=== PATIENT | female | born 2000 | race Caucasian/White ===

== ENCOUNTER 2023-03-22 05:28 | Inpatient (IN) ==
--- NOTE | 2023-03-19 10:13 | Anesthesiology Consultation ---
Date of Service March 19, 2023 Assessment & Plan (1) Encounter for pre-operative examination: Infectious disease screening: Per assessment on 03/19/23: No known infectious disease contacts or current infectious disease symptoms. No noted recent Covid positive test result. 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 History Surgery Operation Date: 03/22/23 07:30 Proposed Procedures p Section in LD (Delivery of Baby through Abdominal Incision) - Brenda Walsh MD Height/Weight Height: 5 ft 2 in Weight: 75.296 kg Allergies Allergy/AdvReac Type Severity Reaction Status Date / Time No Known Allergies Allergy Verified 03/19/23 09:34 Medications Home Medications Medication Instructions Recorded Confirmed Last Taken prenat.vits,kiana,uko-knca-feygc 1 tab PO QPM 08/16/22 03/19/23 Unknown Past Medical History Medical History (Updated 03/19/23 @ 10:12 by Thuy Andrade) No known health problems Past Family History Family History Grandmother Breast cancer Other Depression Diabetes No family history of adverse response to anesthesia Past Surgical History Surgical History History of oral surgery Social History Smoking Status: Never smoker Do You Dip or Chew Tobacco: No Hx Alcohol Use: No Hx Substance Use: No substance use type: does not use
--- NOTE | 2023-03-21 11:55 | History & Physical Report ---
Date of Service March 21, 2023 Assessment & Plan (1) Breech presentation: Plan: 22 yo G1 at 39 wga presents for preop to planned primary CS For breech Discussed indications, risks, benefits, alternatives with risks including infection, bleeding, injury to adjacent structures (bowel, bladder, ureters, blood vessels, nerves, baby), possible need for blood transfusion and/or life saving hysterectomy, VTE. Consent reviewed in detail w/ pt and signed after all questions answered to her satisfaction. History of Present Illness Chief Complaint: Preop Primary Care Provider: Kevin Young MD 22 yo G1 at 39 wga presents for preop for primary CS for breech. 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 Hx: G1 08/2022 neg cyto denies hx stis Allergies Allergy/AdvReac Type Severity Reaction Status Date / Time No Known Allergies Allergy Verified 03/21/23 09:27 Home Medications Medication Instructions Recorded Confirmed Type prenat.vits,kiana,rmi-ljon-snisn 1 tab PO QPM 08/16/22 03/21/23 History Patient History Medical History (Updated 03/19/23 @ 10:12 by Thuy Andrade) No known health problems Surgical History History of oral surgery Family History Grandmother Breast cancer Other Depression Diabetes No family history of adverse response to anesthesia Social History Smoking Status: Never smoker Second Hand Exposure: No; Do You Dip or Chew Tobacco: No; Hx Alcohol Use: No Hx Substance Use: No Preferred Language: Romansh Communication Ability: Effective Deputy Court Clerk Required: No Beliefs That Will Affect Care: None marital status: marital status details: Jace (33) [phone] Current Living Situation: Spouse Current Living Situation Comment: lives with spouse, no pets current occupational status: employed and unemployed Feels Safe at Home: Yes Assistive Devices: Contacts and Glasses Physical Exam Constitutional: WD/WN, vitals as above Respiratory: normal respiratory effort, lungs clear to auscultation Cardiovascular: RRR, no murmur, no edema Genitourinary: OB Exam Abdomen: + heart tones (130s) and + breech (by US) Results & Data Laboratory Results OB Labs: Blood Type A Negative 08/28/22 Antibody Screen NEGATIVE 01/07/23 Hemoglobin 12.4 g/dl (12.0-16.0) 01/07/23 Hematocrit 35.3 % (37.0-47.0) L 01/07/23 Mean Corpuscular Volume 85.9 fL (80.0-100.0) 08/28/22 Platelet Count 299 K/uL (130-400) 08/28/22 Rubella IgG Antibody Immune (Immune) 08/28/22 Rapid Plasma Reagin Nonreactive (Nonreactive) 08/28/22 Hepatitis B Surface Antigen. NON-REACTIVE (NON-REACTIVE) 08/28/22 Hepatitis C Antibody (EIA) NON-REACTIVE (NON-REACTIVE) 08/28/22 HIV (1&2) Ag and Ab Confirmation NON-REACTIVE (NON-REACTIVE) 08/28/22 Glucose 1 Hour 50 gm Load 82 mg/dl (70-130) 01/07/23 OB Optional Labs: Chlamydia trachomatis RNA Not Detected (NotDetected) 08/28/22 Neisseria gonorrhoeae RNA Not Detected (NotDetected) 08/28/22 Labs Reviewed: declined genetics /horizon/afp gbs neg--akh Diagnostic Findings Post plac Coding Level of Care Code None Diagnoses Breech presentation, single or unspecified fetus O32.1XX0 Fetus number: single or unspecified fetus (1) Breech presentation Fetus number: single or unspecified fetus Qualified Code(s): O32.1XX0 - Maternal care for breech presentation, not applicable or unspecified
[2023-03-22] MEDS ORDERED: LACTATED RINGER'S 1,000 ML IV SCH (05:30)
[2023-03-22 05:55] LABS: Basophils # (auto) 0.03 K/uL (0.00-0.20); Basophils % (auto) 0.2 %; Eosinophils % (auto) 0.8 %; Hematocrit (blood only) 36.9 % (37.0-47.0); Hemoglobin 12.7 g/dl (12.0-16.0); Immature Granulocytes # (auto) 0.07 K/uL (0.01-0.20); Immature Granulocytes % (auto) 0.5 %; Lymphocytes % (auto) 22.2 %; Mean Corpuscular Hemoglobin 30.2 pg (25.0-34.0); Mean Corpuscular Hgb Conc 34.4 g/dL (32.0-36.0); Mean Corpuscular Volume 87.9 fL (80.0-100.0); Mean Platelet Volume 11.1 fL (9.4-12.4); Monocytes # (auto) 1.03 K/uL (0.11-0.59); Monocytes % (auto) 7.9 %; Neutrophils # (auto) 8.93 K/uL (1.40-6.50); Neutrophils % (auto) 68.4 %; Platelet Count 242 K/uL (130-400); RDW Coefficient of Variation 13.2 % (11.5-14.5); RDW Standard Deviation 42.3 fL (36.4-46.3); White Blood Count 13.06 K/ul (4.8-10.8)
[2023-03-22] MEDS ORDERED: ceFAZolin 2000MG 2,000 MG/15 ML SYR IV SCH (06:00)
[2023-03-22] MEDS ORDERED: CITRIC ACID/SODIUM CITRATE 15 ML UDC PO SCH (06:00)
[2023-03-22] MEDS ORDERED: MoRPHine SULFATE PF 1 MG/ML 10 ML AMP/VIAL ONE (06:54)
[2023-03-22] MEDS ORDERED: OXYTOCIN 10 UNITS/ML VIAL ONE (06:54)
[2023-03-22] MEDS ORDERED: fentaNYL citrate PF 100 MCG/2 ML VIAL ONE (06:54)
[2023-03-22] MEDS ORDERED: PHENYLEPHRINE HCL 10 MG/ML VIAL ONE (06:54)
[2023-03-22] MEDS ORDERED: ePHEDrine sulfate 50 MG/ML AMP IV PRN (07:10)
[2023-03-22] MEDS ORDERED: MoRPHine SULFATE PF 1 MG/ML 10 ML AMP/VIAL INT SPINAL ONE (07:10)
[2023-03-22] MEDS ORDERED: ONDANSETRON INJ 2 MG/ML 2 ML VIAL IV PRN (07:10)
[2023-03-22] MEDS ORDERED: MoRPHine SULFATE 2 MG/ML CARP IV PRN (07:10)
[2023-03-22] MEDS ORDERED: NALOXONE HCL 0.4 MG/1 ML VIAL/CARP IV PRN (07:10)
[2023-03-22] MEDS ORDERED: NALOXONE HCL 0.08 MG in SYRINGE 1.8 ML IV PRN (07:10)
[2023-03-22] MEDS ORDERED: LACTATED RINGER'S 500 ML IV PRN (07:10)
[2023-03-22] MEDS ORDERED: NALOXONE HCL 1 MG in SODIUM CHLORIDE 0.9% 1,000 ML IV PRN (07:10)
[2023-03-22] MEDS ORDERED: NALBUPHINE HCL 5 MG in SYRINGE 0 ML IV PRN (07:10)
[2023-03-22] MEDS ORDERED: diphenhydrAMINE 50 MG/ML VIAL IV PRN (07:10)
[2023-03-22] MEDS ORDERED: SODIUM CHLORIDE 0.9% 1,000 ML IV SCH (07:15)
[2023-03-22] MEDS ORDERED: NO NARCOTICS OR SEDATIVES SCH ×3 (07:15→07:30)
[2023-03-22] MEDS ORDERED: DC INTRASPINAL MORPHINE SCH (07:15)
--- NOTE | 2023-03-22 07:17 | History & Physical Bridge Note ---
Date of Service March 22, 2023 History & Physical Bridge Note I have examined the patient, reviewed the History & Physical and in the interval since the performance of the History & Physical I have noted the following changes of clinical significance: no changes noted. BSUS confirms still breech, continue w/ planned procedure
[2023-03-22 07:24] LABS: Alanine Aminotransferase 10 U/L (7-52); Albumin Globulin Ratio 1.2 (0.9-2); Alkaline Phosphatase 126 U/L (34-104); Anion Gap 10 (3-11); Aspartate Aminotransferase 15 U/L (13-39); BUN Creatinine Ratio 12.3 (10-20); Bilirubin,Total 0.3 mg/dl (0.2-1.0); Blood Urea Nitrogen 7 mg/dl (6-23); Calcium 8.9 mg/dl (8.6-10.3); Carbon Dioxide 20 mmol/L (21-32); Chloride 108 mmol/L (98-107); Creatinine Clr Calc Pharmacy 147.8 ml/min; Est GFR (African American) > 150.0 ml/min; Est GFR (Non-African American) 131.6 ml/min; Globulin 2.5 gm/dl (2.5-4.0); Glucose 78 mg/dl (70-99(Fasting)); Potassium 3.8 mmol/L (3.5-5.1); Sodium 138 mmol/L (136-145); Total Protein 5.5 gm/dl (6.0-8.3)
[2023-03-22] MEDS ORDERED: ePHEDrine sulfate 50 MG/5 ML SYR ONE (08:58)
--- NOTE | 2023-03-22 09:01 | Operative Report ---
PG Post Operative Report Pre & Post Diagnosis Operation Date: 03/22/23 07:30 Pre-Op Diagnosis: Intrauterine at 39 weeks. Breech presentation. Post-Op Diagnosis: Intrauterine at 39 weeks. Breech presentation. Delivery of live male child at 0815. I identified the patient and participated in the time-out.: Yes Procedure Operation Date: 03/22/23 07:30 Actual Procedures p Primary Low Transverse Section (Delivery of Baby through Abdominal Incision), delivery of live male child at 0815(Bilateral) - Brenda Walsh MD Surgeon Brenda Walsh MD Aircraft Maintenance Technician MD Josefina Estimated Blood Loss 500 Findings Consistent with Post-Op Diagnosis Normal appearing uterus, bilateral fallopian tubes and ovaries. Viable male with APGARs of 8 and 9, weight pending Fluids 1300cc crystalloid, UOP 100cc clear urine by cabrera catheter Specimens Placenta Drains Cabrera draining clear urine Anesthesia Type Spinal Complications none Disposition Accompanied Patient To Recovery: Yes Disposition: L&D Indications 22 yo G1 at 39 1/7 wga presents for primary CS due to breech presentation Description of Procedure The patient was taken to the operating room after consents were ensured. The patient was properly identified. Spinal anesthesia was obtained without difficulty. The patient was placed in a dorsal supine position with left lateral tilt, then prepped and draped in normal sterile fashion. Surgical time out was performed. Antibiotics were given for prophylaxis. Anesthesia was tested to ensure adequate surgical levels. Pfannenstiel skin incision was performed and carried down to the underlying fascia with a knife. The fascia was then nicked in the midline and extended laterally with pickups and Zarate scissors. Superior portion of the fascia was grasped with Kochers x2 and elevated off the underlying rectus muscles using blunt dissection. Inferior portion of the fascia was then grasped with Ahsan clamps x2 and also elevated off the underlying muscles with blunt dissection. Midline was identified. The peritoneum was then entered and extended to provide adequate room for delivery of baby. A hand was inserted into the abdomen, uterus was noted to be clear of adhesions. Bladder blade was inserted, bladder flap was created in the usual fashion. A low transverse uterine incision was made in the uterus and extended bluntly in a superior to inferior fashion. Amniotomy was made with clear fluid at the time of rupture. feet were grasped and delivered through the hysterotomy atraumatically. Fundal pressure was applied and breech and torso were delivered atraumatically through the hysterotomy. Moist blue towel was wrapped around torso and arms were swept across the chest. head delivered spontaneously. Nose and mouth were bulb suctioned on the surgical field. The cord was double clamped and cut, baby was handed off to awaiting pediatrics staff. Cord blood was obtained. Placenta was then expressed from the uterus. The uterus was exteriorized. Several passes were made inside the uterus to remove the remaining membranes. Attention was then turned to the hysterotomy, which was then closed with a running locked suture of 0 Vicryl on a CTX needle. An imbricating layer was then performed using 0-Monocryl. There was noted to be good hemostasis. The posterior cul-de-sac was then inspected and cleaned of clot and debris. The hysterotomy was again inspected and noted to be hemostatic. The uterus was returned to the abdomen. The right and left pericolic gutters were cleaned of all clot and debris. The hysterotomy was again noted to be hemostatic. Space of Retzius was noted to be hemostatic. The fascia was then closed with a running suture of 0 Vicryl on a CT1 needle. Subcutaneous tissue was copiously irrigated and noted to be hemostatic. Subcutaneous tissue was re-approximated using 2-0 plain gut. The skin was then closed with a running suture of 3-0 Monocryl in a subcuticular fashion. At termination of the procedure, fundal pressure was applied and a moderate amount of lochia was expressed. Pressure dressing was applied to the patient. She tolerated the procedure well. All sponge, needle, instrument counts were correct x 2. I attest to the content of the Intraoperative Record and any orders documented therein. Any exceptions are noted below. OB Procedure Charges 45091
[2023-03-22] MEDS ORDERED: DIPHTHERIA/TETANUS/PERTUSSIS Vaccine (Tdap, Age 7+yrs) 0.5mL SYR/VL IM ONE (09:03)
[2023-03-22] MEDS ORDERED: SENNA 8.6 MG TAB PO PRN (09:03)
[2023-03-22] MEDS ORDERED: OXYTOCIN 20 UNITS/LR 1,002 ML IV SCH (09:03)
[2023-03-22] MEDS ORDERED: BENZOCAINE 20% SPRY 85 APPLN/85 GM CAN EXT PRN (09:03)
[2023-03-22] MEDS ORDERED: HYDROCORTISONE ACETATE 25 MG SUPP PR PRN (09:03)
--- NOTE | 2023-03-22 09:19 | Anesthesiology Progress Note ---
Date of Service March 22, 2023 Anesthesia Post Procedure Vital Signs Vital Signs: Temp Pulse Resp BP Pulse Ox 03/22/23 09:14 96 03/22/23 09:14 84 03/22/23 09:14 97 H 146/91 H 03/22/23 09:09 88 96 03/22/23 09:05 16 03/22/23 09:04 88 147/90 H 94 03/22/23 08:59 80 96 03/22/23 08:57 83 93 03/22/23 08:55 36.6 C 16 03/22/23 08:54 80 136/85 95 03/22/23 06:24 76 167/108 H 03/22/23 06:03 85 153/113 H 03/22/23 05:47 80 168/106 H 03/22/23 05:40 37.3 C 18 Transfer of Care Handoff Completed per policy Notes Mental Status: alert / awake / arousable and participated in evaluation Patient Amnestic to Procedure: Yes Nausea / Vomiting: adequately controlled Pain: adequately controlled Airway Patency, RR, SpO2: stable & adequate BP & HR: stable & adequate Hydration State: stable & adequate Neuraxial Anesthesia: was administered and sensory block is resolving Anesthetic Complications: no major complications apparent and Pt Satisfied with anesthetic care
[2023-03-22] MEDS: KETOROLAC 30 MG/ML VIAL IV PRN ×2 (09:40→18:22)
[2023-03-22 10:05] LABS: Total Protein Urine Random 78.4 mg/dl (0-11.9)
[2023-03-22 10:11] LABS: Creatinine Urine Random 137.2 mg/dl; Protein Creatinine Ratio Urine 0.6 (0-0.2)
[2023-03-22] MEDS: LACTATED RINGER'S 1,000 ML IV SCH ×2 (11:17→23:16)
[2023-03-22] MEDS ORDERED: MAG SULFATE 4GM BOLUS FROM BAG IV ONE (11:19)
--- NOTE | 2023-03-22 11:20 | Obstetrical Progress Note ---
Date of Service March 22, 2023 Assessment & Plan Admission and Anticipated Discharge Date Admission Date: March 22, 2023 Results & Data Vital Signs (Past 12 Hours) Vital Signs Temp Pulse Resp BP Pulse Ox 03/22/23 11:14 88 96 03/22/23 11:09 123 H 95 03/22/23 11:04 91 H 98 03/22/23 10:59 90 99 03/22/23 10:54 98 03/22/23 10:54 88 03/22/23 10:54 88 159/109 H 03/22/23 10:49 89 98 03/22/23 10:44 100 H 99 03/22/23 10:39 115 H 97 03/22/23 10:34 81 100 03/22/23 10:29 80 98 03/22/23 10:25 16 03/22/23 10:24 76 99 03/22/23 10:19 76 94 03/22/23 10:14 81 98 03/22/23 10:12 85 170/104 H 03/22/23 10:09 79 97 03/22/23 10:04 104 H 97 03/22/23 09:59 77 96 03/22/23 09:57 78 87 L 03/22/23 09:55 16 03/22/23 09:54 100 03/22/23 09:54 88 03/22/23 09:54 83 161/109 H 03/22/23 09:49 81 98 03/22/23 09:45 16 03/22/23 09:44 87 165/112 H 98 03/22/23 09:39 82 97 03/22/23 09:35 16 03/22/23 09:34 80 166/100 H 96 03/22/23 09:29 87 97 03/22/23 09:25 16 03/22/23 09:24 96 03/22/23 09:24 92 H 03/22/23 09:24 88 144/94 H 03/22/23 09:19 96 H 97 03/22/23 09:15 16 03/22/23 09:14 96 03/22/23 09:14 84 03/22/23 09:14 97 H 146/91 H 03/22/23 09:09 88 96 03/22/23 09:05 16 03/22/23 09:04 88 147/90 H 94 03/22/23 08:59 80 96 03/22/23 08:57 83 93 03/22/23 08:55 97.9 F 16 03/22/23 08:54 80 136/85 95 03/22/23 06:24 76 167/108 H 03/22/23 06:03 85 153/113 H 03/22/23 05:47 80 168/106 H 03/22/23 05:40 99.1 F 18 PG Care Time/CCT Total # of Minutes Spent Total Time Spent with Patient: Total time spent is greater than 50% in coordination of care (as documented) at patient's floor/unit and/or counseling patient: Coding
--- NOTE | 2023-03-22 11:29 | Communication Note ---
Date of Service: March 22, 2023 BPs initially elevated this AM, normal cbc and cmp were noted at that time. Bps improved but remained mild range during CS despite appropriate spinal response. UPC was drawn and 0.6. In recover, bps slowly started increasing again and became severe range. Due to persistent severes, discussed diagnosis w/ pre- eclampsia w/ severe features. She is asymptomatic at this time. Discussed recommendation for magnesium, potential need for anti-hypertensives. Pt aware and amenable to plan. Josue already in place, will monitor I/Os
[2023-03-22] MEDS: MAGNESIUM SULFATE / WTR 40 GM/1,000 ML BAG IV SCH (11:48)
[2023-03-22] MEDS ORDERED: LABETALOL HCL 100 MG TAB ONE (20:06)
[2023-03-22] MEDS: SIMETHICONE 80 MG CHEW PO SCH (21:01)
[2023-03-22] MEDS: DOCUSATE SODIUM 100 MG CAP PO SCH (21:01)
[2023-03-22] MEDS: LABETALOL HCL 200 MG TAB PO SCH (21:02)
[2023-03-23] MEDS: KETOROLAC 30 MG/ML VIAL IV PRN (00:22)
[2023-03-23] MEDS ORDERED: diphenhydrAMINE 50 MG/ML VIAL IV PRN (01:10)
[2023-03-23] MEDS ORDERED: KETOROLAC 30 MG/ML VIAL IV PRN (01:10)
[2023-03-23] MEDS ORDERED: ONDANSETRON INJ 2 MG/ML 2 ML VIAL IV PRN (01:10)
[2023-03-23] MEDS ORDERED: diphenhydrAMINE Capsule 25 MG CAP PO PRN (01:10)
[2023-03-23] MEDS ORDERED: PROMETHAZINE HCL 25 MG in SODIUM CHLORIDE 0.9% 50 ML IV PRN (01:10)
[2023-03-23] MEDS: IBUPROFEN 600 MG TAB PO PRN ×3 (04:31→18:14)
[2023-03-23] MEDS: oxyCODONE/ACETAMINOPHEN 5mg/325mg TAB PO PRN ×3 (04:32→18:17)
[2023-03-23] MEDS: MAGNESIUM SULFATE / WTR 40 GM/1,000 ML BAG IV SCH (06:10)
[2023-03-23] MEDS: LABETALOL HCL 200 MG TAB PO SCH ×2 (08:51→20:32)
[2023-03-23] MEDS: SIMETHICONE 80 MG CHEW PO SCH ×5 (08:52→20:32)
[2023-03-23] MEDS: FERROUS SULFATE 325 MG TAB PO SCH (08:52)
[2023-03-23] MEDS: DOCUSATE SODIUM 100 MG CAP PO SCH ×2 (08:52→20:32)
[2023-03-23] MEDS: PRENATAL VITAMIN 1 TAB PO SCH (08:52)
--- NOTE | 2023-03-23 09:18 | Obstetrical Progress Note ---
Date of Service March 23, 2023 Assessment & Plan (1) Preeclampsia: Day 1 status post primary for breech presentation. course complicated by severe preeclampsia currently on magnesium. Patient doing well and denies preeclampsia symptoms at present. Blood pressures have been labile and was started on labetalol 200 mg twice daily last night. Blood pressures have been well-controlled on current medication dosing. Will continue to monitor and will plan to discontinue mag at 24 hours postdelivery. Questions answered to the patient's satisfaction Trimester: unspecified trimester Qualified Code(s): O14.90 - Unspecified pre-eclampsia, unspecified trimester (2) Severe pre-eclampsia affecting first : (3) Encounter for care and examination after delivery: Subjective Ambulation: ambulating normally Voiding: no voiding problems Passing Gas:: Yes Diet Tolerance:: regular diet Lochia:: Moderate Feeding Type:: breast feeding Patient currently on mg and is doing well. Denies any preeclampsia symptoms Physical Exam Constitutional WD/WN, vitals as above Respiratory normal respiratory effort; no respiratory distress and no labored breathing Gastrointestinal (Abdomen) Inspection/Auscultation: abdomen normal to inspection; abdomen not distended Percussion/Palpation: abdomen soft; abdomen nontender, no guarding and abdomen not rigid Genitourinary OB Exam Abdomen: + fundal height Fundus: + firm and + relation to umbilicus (Below); not tender or not boggy Results & Data Vital Signs (Past 12 Hours) Vital Signs Temp Pulse Resp BP Pulse Ox 03/23/23 09:09 75 95 03/23/23 09:06 88 138/90 03/23/23 09:04 82 96 03/23/23 08:59 94 H 95 03/23/23 08:54 84 95 03/23/23 08:50 85 135/84 03/23/23 08:49 87 94 03/23/23 08:44 75 94 03/23/23 08:39 84 94 03/23/23 08:34 82 93 03/23/23 08:29 78 94 03/23/23 08:24 86 95 03/23/23 08:19 79 94 03/23/23 08:14 77 94 03/23/23 08:09 77 95 03/23/23 08:06 78 128/88 03/23/23 08:04 78 93 03/23/23 07:59 81 94 03/23/23 07:54 80 94 03/23/23 07:49 83 94 03/23/23 07:44 85 94 03/23/23 07:39 81 94 03/23/23 07:34 86 94 03/23/23 07:29 79 94 03/23/23 07:24 84 93 03/23/23 07:19 82 93 03/23/23 07:14 86 94 03/23/23 07:09 85 95 03/23/23 07:06 85 132/85 03/23/23 07:04 87 94 03/23/23 06:59 91 H 94 03/23/23 06:54 92 H 94 03/23/23 06:49 92 H 94 03/23/23 06:44 84 95 03/23/23 06:39 83 94 03/23/23 06:34 83 94 03/23/23 06:29 88 94 03/23/23 06:24 78 95 03/23/23 06:19 87 94 03/23/23 06:14 16 03/23/23 06:14 81 94 03/23/23 06:09 81 94 03/23/23 06:06 82 133/78 03/23/23 06:04 78 95 03/23/23 05:59 90 93 03/23/23 05:54 76 94 03/23/23 05:49 83 94 03/23/23 05:44 82 95 03/23/23 05:39 79 94 03/23/23 05:34 76 94 03/23/23 05:29 83 94 03/23/23 05:24 79 95 03/23/23 05:19 83 94 03/23/23 05:15 16 03/23/23 05:14 80 96 03/23/23 05:09 82 93 03/23/23 05:06 80 137/86 03/23/23 05:04 80 93 03/23/23 04:59 80 95 03/23/23 04:54 81 95 03/23/23 04:49 78 94 03/23/23 04:44 80 92 03/23/23 04:39 84 94 03/23/23 04:34 91 H 93 03/23/23 04:30 16 03/23/23 04:30 87 91 03/23/23 04:29 97 H 94 03/23/23 04:24 71 94 03/23/23 04:19 71 93 03/23/23 04:14 73 94 03/23/23 04:09 73 94 03/23/23 04:06 70 115/71 03/23/23 04:04 78 93 03/23/23 03:59 74 95 03/23/23 03:54 74 94 03/23/23 03:49 72 94 03/23/23 03:44 80 94 03/23/23 03:41 92 H 88 L 03/23/23 03:39 80 94 03/23/23 03:35 36.8 C 16 03/23/23 03:35 16 03/23/23 03:34 76 93 03/23/23 03:29 91 H 95 03/23/23 03:24 78 93 03/23/23 03:19 71 94 03/23/23 03:14 77 94 03/23/23 03:09 79 94 03/23/23 03:06 79 119/77 03/23/23 03:04 77 93 03/23/23 02:59 73 94 03/23/23 02:54 79 94 03/23/23 02:49 67 93 03/23/23 02:44 68 93 03/23/23 02:39 70 93 03/23/23 02:34 68 93 03/23/23 02:29 71 93 03/23/23 02:24 76 94 03/23/23 02:19 72 94 03/23/23 02:15 16 03/23/23 02:14 71 94 03/23/23 02:09 78 95 03/23/23 02:06 74 142/87 H 03/23/23 02:04 79 94 03/23/23 01:59 87 93 03/23/23 01:54 75 93 03/23/23 01:49 72 94 03/23/23 01:44 71 93 03/23/23 01:39 88 92 03/23/23 01:34 80 93 03/23/23 01:30 18 03/23/23 01:30 74 91 03/23/23 01:29 66 92 03/23/23 01:25 68 91 03/23/23 01:24 68 92 03/23/23 01:19 92 03/23/23 01:19 69 03/23/23 01:19 69 91 03/23/23 01:14 68 92 03/23/23 01:09 70 92 03/23/23 01:06 70 126/81 03/23/23 01:04 75 93 03/23/23 00:59 92 03/23/23 00:59 69 03/23/23 00:59 70 91 03/23/23 00:54 82 93 03/23/23 00:49 76 94 03/23/23 00:44 72 93 03/23/23 00:39 75 94 03/23/23 00:34 77 94 03/23/23 00:30 16 03/23/23 00:29 82 93 03/23/23 00:24 79 93 03/23/23 00:19 77 94 03/23/23 00:14 74 93 03/23/23 00:09 72 93 03/23/23 00:06 71 123/81 03/23/23 00:04 70 92 03/22/23 23:59 73 92 03/22/23 23:54 83 93 03/22/23 23:49 85 93 03/22/23 23:44 76 94 03/22/23 23:39 79 93 03/22/23 23:34 84 96 03/22/23 23:30 18 03/22/23 23:29 75 95 03/22/23 23:24 92 H 94 03/22/23 23:19 79 95 03/22/23 23:15 36.5 C 18 03/22/23 23:14 79 94 03/22/23 23:09 75 94 03/22/23 23:06 76 138/87 03/22/23 23:04 77 93 03/22/23 22:59 78 94 03/22/23 22:54 76 93 03/22/23 22:49 78 94 03/22/23 22:44 80 94 03/22/23 22:39 73 95 03/22/23 22:34 75 94 03/22/23 22:30 16 03/22/23 22:29 76 94 03/22/23 22:24 82 94 03/22/23 22:19 79 94 03/22/23 22:14 72 93 03/22/23 22:09 71 93 03/22/23 22:06 72 134/77 03/22/23 22:04 78 93 03/22/23 21:59 73 92 03/22/23 21:55 71 91 03/22/23 21:54 75 92 03/22/23 21:49 72 93 03/22/23 21:44 76 94 03/22/23 21:39 76 92 03/22/23 21:34 81 94 03/22/23 21:30 18 03/22/23 21:29 92 H 94 03/22/23 21:24 82 95 03/22/23 21:19 78 91
[2023-03-23 12:40] LABS: Basophils # (auto) 0.02 K/uL (0.00-0.20); Basophils % (auto) 0.1 %; Eosinophils # (auto) 0.03 K/uL (0.00-0.50); Eosinophils % (auto) 0.2 %; Hematocrit (blood only) 25.9 % (37.0-47.0); Hemoglobin 9.1 g/dl (12.0-16.0); Immature Granulocytes # (auto) 0.18 K/uL (0.01-0.20); Immature Granulocytes % (auto) 1.2 %; Lymphocytes # (auto) 1.75 K/uL (1.20-3.40); Lymphocytes % (auto) 11.3 %; Mean Corpuscular Hemoglobin 30.7 pg (25.0-34.0); Mean Corpuscular Hgb Conc 35.1 g/dL (32.0-36.0); Mean Corpuscular Volume 87.5 fL (80.0-100.0); Mean Platelet Volume 11.2 fL (9.4-12.4); Monocytes # (auto) 1.24 K/uL (0.11-0.59); Neutrophils # (auto) 12.24 K/uL (1.40-6.50); Neutrophils % (auto) 79.2 %; Platelet Count 206 K/uL (130-400); RDW Coefficient of Variation 13.5 % (11.5-14.5); Red Blood Count 2.96 M/uL (4.20-5.40); White Blood Count 15.46 K/ul (4.8-10.8)
[2023-03-23] MEDS ORDERED: bisacodyL 5 MG TABEC PO SCH (20:00)
[2023-03-24 06:54] LABS: Hematocrit (blood only) 24.1 % (37.0-47.0); Hemoglobin 8.5 g/dl (12.0-16.0)
--- NOTE | 2023-03-24 07:22 | Obstetrical Progress Note ---
Date of Service March 24, 2023 Assessment & Plan (1) Encounter for care and examination after delivery: (2) Severe pre-eclampsia affecting first : Plan 22 yo POD 2 from pLTCS c/b PET w/ SF, doing well -Meeting all pp milestones -BPs adequately managed on lab 200mg PO BID -Rh neg, baby Rh neg/rubella immune/ -f/u 6 weeks for appt, continue routine pp care Subjective Ambulation: ambulating normally Voiding: no voiding problems Passing Gas:: Yes Diet Tolerance:: regular diet Lochia:: Small Feeding Type:: breast feeding Pain well managed with medication Review of Systems Denies fevers, chills, n/v, NUNEZ, CP, SOB Physical Exam Constitutional WD/WN, vitals as above no acute distress Respiratory normal respiratory effort, lungs clear to auscultation Cardiovascular RRR, no murmur, no edema Gastrointestinal (Abdomen) Percussion/Palpation: abdomen soft; abdomen nontender fundus firm at umbilicus and NT, incision c/d/i Musculoskeletal BLE symmetric, nonerythematous, nontender Results & Data Vital Signs (Past 12 Hours) Vital Signs Temp Pulse Resp BP BP 03/24/23 03:18 145/90 H 03/24/23 00:18 148/99 H 03/23/23 23:50 98.1 F 85 18 161/99 H 03/23/23 20:20 97.5 F L 85 18 158/93 H
[2023-03-24] MEDS: FERROUS SULFATE 325 MG TAB PO SCH (08:30)
[2023-03-24] MEDS: DOCUSATE SODIUM 100 MG CAP PO SCH ×2 (08:30→19:46)
[2023-03-24] MEDS: PRENATAL VITAMIN 1 TAB PO SCH (08:30)
[2023-03-24] MEDS: LABETALOL HCL 200 MG TAB PO SCH ×2 (08:30→21:15)
[2023-03-24] MEDS: oxyCODONE/ACETAMINOPHEN 5mg/325mg TAB PO PRN ×4 (08:30→23:28)
[2023-03-24] MEDS: SIMETHICONE 80 MG CHEW PO SCH ×4 (08:30→19:46)
[2023-03-24] MEDS: IBUPROFEN 600 MG TAB PO PRN ×4 (08:31→23:27)
[2023-03-24] MEDS: MAGNESIUM HYDROXIDE SUSP 30 ML UDC PO PRN (08:41)
[2023-03-24] MEDS ORDERED: bisacodyL 10 MG SUPP PR PRN (08:53)
[2023-03-24] MEDS ORDERED: LABETALOL HCL 200 MG TAB PO STA (13:26)
[2023-03-24 13:56] LABS: Basophils # (auto) 0.02 K/uL (0.00-0.20); Basophils % (auto) 0.1 %; Eosinophils # (auto) 0.08 K/uL (0.00-0.50); Eosinophils % (auto) 0.6 %; Hematocrit (blood only) 25.9 % (37.0-47.0); Hemoglobin 8.7 g/dl (12.0-16.0); Immature Granulocytes # (auto) 0.14 K/uL (0.01-0.20); Lymphocytes % (auto) 14.1 %; Mean Corpuscular Hemoglobin 30.4 pg (25.0-34.0); Mean Corpuscular Hgb Conc 33.6 g/dL (32.0-36.0); Mean Corpuscular Volume 90.6 fL (80.0-100.0); Mean Platelet Volume 10.1 fL (9.4-12.4); Monocytes # (auto) 1.17 K/uL (0.11-0.59); Monocytes % (auto) 8.3 %; Neutrophils # (auto) 10.76 K/uL (1.40-6.50); Neutrophils % (auto) 75.9 %; Platelet Count 216 K/uL (130-400); RDW Coefficient of Variation 13.8 % (11.5-14.5); RDW Standard Deviation 45.6 fL (36.4-46.3); Red Blood Count 2.86 M/uL (4.20-5.40); White Blood Count 14.17 K/ul (4.8-10.8)
[2023-03-24 14:09] LABS: Alanine Aminotransferase 9 U/L (7-52); Albumin Globulin Ratio 1.2 (0.9-2); Albumin Level 2.9 gm/dl (3.4-5.0); Alkaline Phosphatase 103 U/L (34-104); Anion Gap 8 (3-11); Aspartate Aminotransferase 16 U/L (13-39); BUN Creatinine Ratio 15.5 (10-20); Bilirubin,Total 0.3 mg/dl (0.2-1.0); Blood Urea Nitrogen 9 mg/dl (6-23); Calcium 8.1 mg/dl (8.6-10.3); Carbon Dioxide 24 mmol/L (21-32); Chloride 108 mmol/L (98-107); Creatinine Clr Calc Pharmacy 145.2 ml/min; Est GFR (African American) > 150.0 ml/min; Est GFR (Non-African American) 130.8 ml/min; Globulin 2.4 gm/dl (2.5-4.0); Glucose 91 mg/dl (70-99(Fasting)); Sodium 140 mmol/L (136-145); Total Protein 5.3 gm/dl (6.0-8.3)
[2023-03-24] MEDS ORDERED: NIFEdipine EXTENDED REL 30 MG TABCR PO STA (15:35)
[2023-03-24] MEDS ORDERED: LABETALOL HCL 200 MG TAB PO SCH (18:00)
[2023-03-25] MEDS ORDERED: LABETALOL HCL 200 MG TAB PO SCH ×2 (02:00→10:00)
[2023-03-25] MEDS ORDERED: Nursing to Pharmacy Communication SCH (03:45)
[2023-03-25] MEDS: IBUPROFEN 600 MG TAB PO PRN ×3 (06:42→15:23)
[2023-03-25] MEDS: oxyCODONE/ACETAMINOPHEN 5mg/325mg TAB PO PRN ×3 (06:42→15:23)
[2023-03-25] MEDS: MAGNESIUM HYDROXIDE SUSP 30 ML UDC PO PRN (07:29)
[2023-03-25] MEDS: PRENATAL VITAMIN 1 TAB PO SCH (07:29)
[2023-03-25] MEDS: DOCUSATE SODIUM 100 MG CAP PO SCH (07:29)
[2023-03-25] MEDS: FERROUS SULFATE 325 MG TAB PO SCH (07:29)
[2023-03-25] MEDS: SIMETHICONE 80 MG CHEW PO SCH ×2 (07:29→15:09)
--- NOTE | 2023-03-25 08:04 | Obstetrical Progress Note ---
Date of Service March 25, 2023 Assessment & Plan (1) Encounter for care and examination after delivery: (2) Severe pre-eclampsia affecting first : Plan 22 yo POD 2 from pLTCS c/b PET w/ SF, doing well -Meeting all pp milestones -BPs spiked yesterday, now currently on labetalol 600q8. Did receive one dose of nifedipine 30xl but didn't seem to help much. BP is normal this AM. WIll watch throughout the day, if ok then maybe dc later this evening -Rh neg, baby Rh neg/rubella immune/ -f/u 6 weeks for appt, continue routine pp care Subjective Ambulation: ambulating normally Voiding: no voiding problems Passing Gas:: Yes Diet Tolerance:: regular diet Lochia:: Small Feeding Type:: breast feeding Pain well managed with medication Review of Systems Denies fevers, chills, n/v, NUNEZ, CP, SOB Physical Exam Constitutional WD/WN, vitals as above no acute distress Respiratory normal respiratory effort, lungs clear to auscultation Cardiovascular RRR, no murmur, no edema Gastrointestinal (Abdomen) Percussion/Palpation: abdomen soft; abdomen nontender fundus firm at umbilicus and NT, incision c/d/i Musculoskeletal BLE symmetric, nonerythematous, nontender Results & Data Vital Signs (Past 12 Hours) Vital Signs Temp Pulse Resp BP Pulse Ox O2 Del Method 03/25/23 07:17 98.2 F 91 H 18 107/67 97 Room Air 03/25/23 03:10 152/96 H 03/24/23 23:29 97.9 F 73 18 143/89 H 97 Room Air 03/24/23 21:14 157/96 H
== END 2023-03-25 16:45 | disposition home or self-care (01) | DRG 788 ==
LOC: 4S1 05:28 → EDSTATUS 07:30 → 4E2 03-23 13:37

== ENCOUNTER 2024-10-24 19:01 | Inpatient (IN) ==
[2024-10-24 20:25] LABS: Hematocrit (blood only) 35.4 % (37.0-47.0); Hemoglobin 11.9 g/dl (12.0-16.0); Mean Corpuscular Hemoglobin 28.0 pg (25.0-34.0); Mean Corpuscular Volume 83.3 fL (80.0-100.0); Platelet Count 238 K/uL (130-400); RDW Standard Deviation 43.2 fL (36.4-46.3); Red Blood Count 4.25 M/uL (4.20-5.40); White Blood Count 14.45 K/ul (4.8-10.8)
[2024-10-24 20:35] LABS: Protein Creatinine Ratio Urine 0.3 (0-0.2); Total Protein Urine Random 11.8 mg/dl (0-11.9)
[2024-10-24 20:42] LABS: Alanine Aminotransferase 10.0 U/L (7-52); Albumin Globulin Ratio 1.0 (0.9-2); Alkaline Phosphatase 195.0 U/L (34-104); Anion Gap 9.0 (3-11); Bilirubin,Total 0.4 mg/dl (0.2-1.0); Blood Urea Nitrogen 9.0 mg/dl (6-23); Calcium 9.4 mg/dl (8.6-10.3); Carbon Dioxide 21.0 mmol/L (21-32); Chloride 105.0 mmol/L (98-107); Creatinine Clr Calc Pharmacy 139.5 ml/min; Globulin 3.2 gm/dl (2.5-4.0); Glucose 83.0 mg/dl (70-99(Fasting)); Potassium 3.7 mmol/L (3.5-5.1); Sodium 135.0 mmol/L (136-145); Total Protein 6.5 gm/dl (6.0-8.3)
[2024-10-24] MEDS ORDERED: DEXAMETHASONE SOD INJ 4 MG/ML VIAL ONE (23:43)
[2024-10-24] MEDS ORDERED: ONDANSETRON INJ 2 MG/ML 2 ML VIAL ONE (23:43)
[2024-10-24] MEDS ORDERED: PHENYLEPHRINE 100MCG/ML 5ML SYR ONE (23:43)
[2024-10-24] MEDS ORDERED: PHENYLEPHRINE HCL 25 MG/250 ML NSS IV ONE (23:43)
[2024-10-24] MEDS ORDERED: MoRPHine SULFATE PF 1 MG/ML 10 ML AMP/VIAL ONE (23:48)
--- NOTE | 2024-10-24 23:48 | History & Physical Report ---
Date of Service October 24, 2024 Assessment & Plan (1) Pre-eclampsia: (2) Previous delivery affecting , antepartum: Plan 24 yo at 39 3/7 wga presented for decreased fm, now dx w/ pre-eclampsia w/o severe features Mild range bps Fetus cat 1 Discussed indications, risks, benefits, alternatives with risks including infection, bleeding, injury to adjacent structures (bowel, bladder, ureters, blood vessels, nerves, baby), possible need for blood transfusion and/or life saving hysterectomy, VTE. Consent reviewed in detail w/ pt and signed after all questions answered to her satisfaction. History of Present Illness Chief Complaint: decreased fm Primary Care Provider: Kevin Young MD 24 yo at 39 3/7 wga presented for evaluation due to decreased fm. Denies regular ctx, LOF, VB. On arrival, started having normal fm but bps noted to be mildly elevated. Denies NUNEZ, vision change, CP, SOB, RUQ/epigastric pain. Labs wnl except UP:C 0.3. 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 G2 current denies hx stis denies hx abnl pap Allergies Allergy/AdvReac Type Severity Reaction Status Date / Time No Known Allergies Allergy Verified 10/21/24 08:45 Home Medications Medication Instructions Recorded Confirmed Type prenat.vits,kiana,exa-iosu-rfrko 1 tab PO QPM 08/16/22 10/24/24 History ondansetron HCl 4 mg tablet 4 mg PO Q6H PRN nausea and 07/23/24 10/21/24 Rx vomiting #20 tabs nystatin-triamcinolone 100,000 1 applic topical BID #30 grams 07/28/24 10/21/24 Rx unit/g-0.1 % topical cream aspirin 81 mg chewable tablet 1 tab PO DAILY 10/24/24 10/24/24 History Patient History Medical History Varicella vaccination Surgical History S/P section History of oral surgery Family History Grandmother Breast cancer Father Diabetes Mother Arthritis Other Depression No family history of adverse response to anesthesia Denies family history of Ovarian cancer Colorectal cancer Social History Smoking Status: Never smoker Second Hand Exposure: No; Do You Dip or Chew Tobacco: No; Hx Alcohol Use: No Hx Substance Use: No Preferred Language: Egyptian Communication Ability: Effective Keno Manager Required: No Beliefs That Will Affect Care: None marital status: marital status details: Jace Villalobos (34) [phone] Current Living Situation: Spouse and Family Current Living Situation Comment: lives with spouse,child, no pets current occupational status: unemployed 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 Feels Safe at Home: Yes Safety Concerns: Feels Safe At This Time Assistive Devices: Glasses Physical Exam Genitourinary: OB Exam Monitor Tracing: + external FHT monitor used, + external uterine monitor used (irreg) and + category I (150/mod/+accel/-decel) Results & Data Vital Signs (Past 12 Hours) Vital Signs Temp Pulse Resp BP 10/24/24 23:23 100 H 137/95 10/24/24 23:03 98 H 139/97 10/24/24 22:44 84 135/100 10/24/24 22:23 112 H 149/95 H 10/24/24 22:03 86 133/87 10/24/24 21:26 80 124/81 10/24/24 21:10 74 132/85 10/24/24 20:55 75 137/91 10/24/24 20:40 80 142/99 H 10/24/24 20:25 81 129/89 10/24/24 20:10 85 144/100 H 10/24/24 19:55 86 133/90 10/24/24 19:43 85 125/92 10/24/24 19:40 88 136/92 10/24/24 19:24 75 134/93 10/24/24 19:17 98.1 F 16 10/24/24 19:14 76 147/97 H Laboratory Results 10/24/24 10/24/24 Range/Units 20:02 19:55 WBC 14.45 H (4.8-10.8) K/ul RBC 4.25 (4.20-5.40) M/uL Hgb 11.9 L (12.0-16.0) g/dl Hct 35.4 L (37.0-47.0) % MCV 83.3 (80.0-100.0) fL MCH 28.0 (25.0-34.0) pg MCHC 33.6 (32.0-36.0) g/dL RDW Std Deviation 43.2 (36.4-46.3) fL RDW Coeff of Jose 14.6 H (11.5-14.5) % Plt Count 238 (130-400) K/uL MPV 11.0 (9.4-12.4) fL Sodium 135 L (136-145) mmol/L Potassium 3.7 (3.5-5.1) mmol/L Chloride 105 (98-107) mmol/L Carbon Dioxide 21 (21-32) mmol/L Anion Gap 9 (3-11) BUN 9 (6-23) mg/dl Creatinine 0.59 L (0.6-1.2) mg/dl Est Cr Clr Drug Dosing 139.5 ml/min eGFR 128.98 BUN/Creatinine Ratio 15.3 (10-20) Glucose 83 (70-99(Fasting)) mg/dl Calcium 9.4 (8.6-10.3) mg/dl Total Bilirubin 0.4 (0.2-1.0) mg/dl AST 15 (13-39) U/L ALT 10 (7-52) U/L Alkaline Phosphatase 195 H (34-104) U/L Total Protein 6.5 (6.0-8.3) gm/dl Albumin 3.3 L (3.4-5.0) gm/dl Globulin 3.2 (2.5-4.0) gm/dl Albumin/Globulin Ratio 1.0 (0.9-2) Ur Random Creatinine 42.6 mg/dl U Random Total Protein 11.8 (0-11.9) mg/dl Protein/Creatinin Ratio 0.3 H (0-0.2) OB Labs: Blood Type A Negative 03/31/24 Antibody Screen NEGATIVE 08/05/24 Hgb 12.3 g/dl (12.0-16.0) 08/03/24 Hct 36.9 % (37.0-47.0) L 08/03/24 MCV 82.2 fL (80.0-100.0) 03/31/24 Plt Count 306 K/uL (130-400) 03/31/24 Rubella IgG Antibody Immune (Immune) 03/31/24 RPR Nonreactive (Nonreactive) 08/28/22 Treponema pallidum Ab Negative (Negative) 08/03/24 Hep Bs Antigen Negative (Negative) 03/31/24 Hep Bs Antigen NON-REACTIVE (NON-REACTIVE) 08/28/22 Hepatitis C Antibody Negative (Negative) 03/31/24 Hepatitis C Ab (EIA) NON-REACTIVE (NON-REACTIVE) 08/28/22 HIV 1&2 Ab/P24 Ag 4thGn Negative (Negative) 03/31/24 HIV (1&2) Ag & Ab Conf NON-REACTIVE (NON-REACTIVE) 08/28/22 Glucose 1 Hr 50 gm 105 mg/dl (70-130) 08/03/24 OB Optional Labs: Chlamydia trachomatis RNA Not Detected (NotDetected) 03/31/24 Neisseria gonorrhoeae RNA Not Detected (NotDetected) 03/31/24 Labs Reviewed: Declines genetics--mln GBS neg Diagnostic Findings post plac Coding Level of Care Code None Diagnoses Pre-eclampsia O14.90 Previous delivery affecting , antepartum O34.219
[2024-10-25] MEDS: LACTATED RINGER'S 1,000 ML IV SCH ×2 (00:19→10:11)
[2024-10-25] MEDS: CITRIC ACID/SODIUM CITRATE 15 ML UDC PO STA (00:20)
[2024-10-25] MEDS: ACETAMINOPHEN 500 MG TAB PO STA (00:20)
--- NOTE | 2024-10-25 00:32 | Anesthesiology Consultation ---
Date of Service October 25, 2024 Assessment & Plan (1) Encounter for pre-operative examination: 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: Acceptable Risk for Surgery and Patient NOT seen in Pre Admission Testing Consults Requested none History Surgery Operation Date: 10/24/24 23:35 Proposed Procedures p Section in LD - Brenda Walsh MD Height/Weight Height: 5 ft 3 in Weight: 71.668 kg Allergies Allergy/AdvReac Type Severity Reaction Status Date / Time No Known Allergies Allergy Verified 10/21/24 08:45 Medications Home Medications Medication Instructions Recorded Confirmed Last Taken prenat.vits,kiana,oba-meuc-yhsqt 1 tab PO QPM 08/16/22 10/24/24 1 Day Ago ~10/23/24 ondansetron HCl 4 mg tablet 4 mg PO Q6H PRN nausea and 07/23/24 10/21/24 Unknown vomiting #20 tabs nystatin-triamcinolone 100,000 1 applic topical BID #30 grams 07/28/24 10/21/24 Unknown unit/g-0.1 % topical cream aspirin 81 mg chewable tablet 1 tab PO DAILY 10/24/24 10/24/24 1 Day Ago ~10/23/24 Active Medications Generic Name Dose Route Start Last Admin Trade Name Freq PRN Reason Stop Dose Admin Lactated Ringer's 1,000 mls @ 999 mls/hr 10/24/24 23:45 10/25/24 00:19 Lr IV 10/25/24 00:45 999 mls/hr .Q1H1M CORTEZ Administration Past Medical History Medical History (Updated 10/25/24 @ 00:31 by Yang Sood MD) Encounter for pre-operative examination Pre-eclampsia Varicella vaccination Exercise / Class Metabolic Activity II 4-5 Yardwork/Stairs/Walk up hill Past Family History Family History Grandmother Breast cancer Father Diabetes Mother Arthritis Other Depression No family history of adverse response to anesthesia Denies family history of Ovarian cancer Colorectal cancer Past Surgical History Surgical History S/P section History of oral surgery gum sx Past Anesthesia History No Hx of Anesthesia Complications and No Family Hx of Anesthesia Complications History of PONV No Hx of PONV and No Hx of Motion Sickness Social History Smoking Status: Never smoker Do You Dip or Chew Tobacco: No Hx Alcohol Use: No Hx Substance Use: No substance use type: does not use Physical Exam Vital Signs Last Vital Signs Temp 36.7 C 10/24/24 19:17 Pulse 100 H 10/24/24 23:23 Resp 16 10/24/24 19:17 BP 137/95 10/24/24 23:23 Testing Laboratory Results 10/24/24 20:02 10/24/24 20:02
[2024-10-25] MEDS ORDERED: NALOXONE HCL 1 MG in SODIUM CHLORIDE 0.9% 1,000 ML IV PRN (01:15)
[2024-10-25] MEDS ORDERED: LACTATED RINGER'S 500 ML IV PRN (01:15)
[2024-10-25] MEDS ORDERED: NALOXONE HCL 0.4 MG/1 ML VIAL/CARP IV PRN (01:15)
[2024-10-25] MEDS ORDERED: diphenhydrAMINE 50 MG/ML VIAL IV PRN ×2 (01:15→19:15)
[2024-10-25] MEDS ORDERED: MoRPHine SULFATE PF 1 MG/ML 10 ML AMP/VIAL INT SPINAL ONE (01:15)
[2024-10-25] MEDS ORDERED: SODIUM CHLORIDE 0.9% 1,000 ML IV SCH (01:15)
[2024-10-25] MEDS ORDERED: NO NARCOTICS OR SEDATIVES SCH (01:15)
[2024-10-25] MEDS ORDERED: DC INTRASPINAL MORPHINE SCH (01:15)
[2024-10-25] MEDS ORDERED: HYDROmorphone INJ 0.5 MG/0.5 ML SYR IV PRN ×2 (01:15→19:15)
[2024-10-25] MEDS ORDERED: NALBUPHINE HCL INJ 10 MG/ML AMP IV PRN (01:15)
[2024-10-25] MEDS ORDERED: ePHEDrine sulfate 50 MG/5 ML SYR ONE (01:57)
[2024-10-25] MEDS ORDERED: ONDANSETRON INJ 2 MG/ML 2 ML VIAL ONE (02:03)
--- NOTE | 2024-10-25 02:30 | Operative Report ---
Post Operative Report Pre & Post Diagnosis Operation Date: 10/24/24 23:35 Intrauterine at 39 4/7 wga, Pre-eclampsia w/o Severe Features, History of CSx1 desires repeat I identified the patient and participated in the time-out.: Yes Procedure Operation Date: 10/24/24 23:35 Repeat Low Transverse Section Surgeon Brenda Walsh MD Ac/Dc Rewinder RASHID Majano Quantitative Blood Loss (QBL) 371 Findings Consistent with Post-Op Diagnosis Normal appearing uterus, bilateral fallopian tubes and ovaries. Viable male infant weighing 7lbs 14oz, APGARs 8 and 8 Fluids UOP 300cc by cabrera catheter Specimens Placenta, cord blood Drains Cabrera draining clear urine Anesthesia Type Spinal Complications none Disposition Accompanied Patient To Recovery: Yes Disposition: L&D Indications 24 yo at 39 4/7 wga presented for evaluation due to decreased movement. Reactive NST was noted however mild range blood pressures noted and persisted. Pre-eclampsia labs were obtained and wnl except UP:C 0.3. Mild range blood pressures continued and she met criteria for pre-eclampsia without severe features and recommended for delivery Description of Procedure The patient was taken to the operating room after consents were ensured. The patient was properly identified. Spinal anesthesia was obtained without difficulty. The patient was placed in a dorsal supine position with left lateral tilt, then prepped and draped in normal sterile fashion. Surgical time out was performed. Antibiotics were given for prophylaxis. Anesthesia was tested to ensure adequate surgical levels. Pfannenstiel skin incision was performed and carried down to the underlying fascia with a knife. The fascia was then nicked in the midline and extended laterally with pickups and Zarate scissors. Superior portion of the fascia was grasped with Kochers x2 and elevated off the underlying rectus muscles using blunt dissection. Inferior portion of the fascia was then grasped with Ahsan clamps x2 and also elevated off the underlying muscles with blunt dissection. Midline was identified. The peritoneum was then entered and extended to provide adequate room for delivery of baby. A hand was inserted into the abdomen, uterus was noted to be clear of adhesions. Bladder blade was inserted, bladder flap was created in the usual fashion. A low transverse uterine incision was made in the uterus and extended bluntly in a superior to inferior fashion. Amniotomy was made with clear fluid at the time of rupture. head was grasped and elevated through the hysterotomy in an atraumatic fashion. The baby delivered in CHRISTOFER position, nuchal cord x 3 was reduced. Remainder of the body delivered without incident. Nose and mouth were bulb suctioned on the surgical field. The cord was double clamped and cut, baby was handed off to awaiting pediatrics staff. Cord segment and blood were obtained. Placenta was then expressed from the uterus. The uterus was exteriorized. Several passes were made inside the uterus to remove the remaining membranes. Attention was then turned to the hysterotomy, which was then closed with a running locked suture of 0 Vicryl on a CTX needle. An imbricating layer was then performed using 0-Monocryl. There was noted to be good hemostasis. The posterior cul-de-sac was then inspected and cleaned of clot and debris. The hysterotomy was again inspected and noted to be hemostatic. The uterus was returned to the abdomen. The right and left pericolic gutters were cleaned of all clot and debris. The hysterotomy was again noted to be hemostatic. Space of Retzius was noted to be hemostatic. Eugenio was applied to hysterotomy site and on the rectus. The fascia was then closed with a running suture of 0 Vicryl on a CT1 needle. Subcutaneous tissue was copiously irrigated and noted to be hemostatic. Subcutaneous tissue was re-approximated using 2-0 plain gut. The skin was then closed with a running suture of 3-0 Monocryl in a subcuticular fashion. At termination of the procedure, fundal pressure was applied and a moderate amount of lochia was expressed. Pressure dressing was applied to the patient. She tolerated the procedure well. All sponge, needle, instrument counts were correct x 2. I attest to the content of the Intraoperative Record and any orders documented therein. Any exceptions are noted below. OB Procedure Charges 72858
--- NOTE | 2024-10-25 02:30 | Post Operative Brief Note ---
Immediate Post Op Note Date of Surgery October 25, 2024 Pre & Post Diagnosis Operation Date: 10/24/24 23:35 Intrauterine at 39 4/7 wga, Pre-eclampsia w/o severe features, History of CSx1 desires repeat I identified the patient and participated in the time-out.: Yes Procedure Operation Date: 10/24/24 23:35 Repeat Low Transverse Section Surgeon Brenda Walsh MD Electromechanical Engineer RASHID Majano Quantitative Blood Loss (QBL) 371 Findings Consistent with Post-Op Diagnosis Normal appearing uterus, bilateral fallopian tubes and ovaries. Viable male weighing 7lbs 14oz, APGARs 8 and 8 Fluids UOP 300cc by cabrera catheter Specimens Specimen Description: Placenta: hold; cord blood: sent to lab. Drains Cabrera Catheter Anesthesia Type Spinal Complications none Disposition Accompanied Patient To Recovery: Yes Disposition: L&D
--- NOTE | 2024-10-25 02:41 | Anesthesiology Progress Note ---
Date of Service October 25, 2024 Anesthesia Post Procedure Vital Signs Vital Signs: Temp Pulse Resp BP Pulse Ox 10/25/24 02:36 97 H 140/83 99 10/24/24 23:23 100 H 137/95 10/24/24 23:03 98 H 139/97 10/24/24 22:44 84 135/100 10/24/24 22:23 112 H 149/95 H 10/24/24 22:03 86 133/87 10/24/24 21:26 80 124/81 10/24/24 21:10 74 132/85 10/24/24 20:55 75 137/91 10/24/24 20:40 80 142/99 H 10/24/24 20:25 81 129/89 10/24/24 20:10 85 144/100 H 10/24/24 19:55 86 133/90 10/24/24 19:43 85 125/92 10/24/24 19:40 88 136/92 10/24/24 19:24 75 134/93 10/24/24 19:17 36.7 C 16 10/24/24 19:14 76 147/97 H Transfer of Care Handoff Completed per policy Notes Mental Status: alert / awake / arousable and participated in evaluation Patient Amnestic to Procedure: No Nausea / Vomiting: adequately controlled Pain: adequately controlled Airway Patency, RR, SpO2: stable & adequate BP & HR: stable & adequate Hydration State: stable & adequate Neuraxial Anesthesia: was administered and sensory block is resolving Anesthetic Complications: no major complications apparent and Pt Satisfied with anesthetic care
[2024-10-25] MEDS: PROMETHAZINE 6.25 MG/50.25 ML BAG IV PRN (04:10)
[2024-10-25] MEDS ORDERED: HYDROCORTISONE ACETATE 25 MG SUPP PR PRN (04:18)
[2024-10-25] MEDS ORDERED: MAGNESIUM HYDROXIDE SUSP 30 ML UDC PO PRN (04:18)
[2024-10-25] MEDS ORDERED: DIPHTHER/TETAN/PERTUS Vaccine (Tdap, Adol/Adult) 0.5mL IM ONE (04:18)
[2024-10-25] MEDS ORDERED: BENZOCAINE 20% SPRY 85 APPLN/85 GM CAN EXT PRN (04:18)
[2024-10-25] MEDS ORDERED: LACTATED RINGER'S 1,000 ML IV SCH (04:18)
[2024-10-25] MEDS ORDERED: SENNA 8.6 MG TAB PO PRN (04:18)
[2024-10-25] MEDS: ONDANSETRON INJ 2 MG/ML 2 ML VIAL IV PRN (04:48)
[2024-10-25] MEDS: KETOROLAC 30 MG/ML VIAL IV SCH (06:14)
[2024-10-25] MEDS: OXYTOCIN 20 UNITS/LR 1,002 ML IV SCH (07:12)
[2024-10-25] MEDS ORDERED: Nursing to Pharmacy Communication SCH (07:45)
[2024-10-25] MEDS ORDERED: ACETAMINOPHEN 325 MG TAB PO SCH (08:30)
[2024-10-25] MEDS: PRENATAL VITAMIN 1 TAB PO SCH (09:33)
[2024-10-25] MEDS: FERROUS SULFATE 325 MG TAB PO SCH (09:33)
[2024-10-25] MEDS: DOCUSATE SODIUM 100 MG CAP PO SCH (09:33)
[2024-10-25] MEDS: SIMETHICONE 80 MG CHEW PO SCH (10:18)
[2024-10-25] MEDS: ACETAMINOPHEN 325 MG TAB PO SCH (11:39)
[2024-10-25] MEDS: NALOXONE HCL 0.08 MG in SYRINGE 1.8 ML IV PRN (18:35)
[2024-10-25] MEDS ORDERED: PROMETHAZINE 12.5 MG/50.5 ML BAG IV PRN (19:15)
[2024-10-25] MEDS ORDERED: ONDANSETRON INJ 2 MG/ML 2 ML VIAL IV PRN (19:15)
[2024-10-25] MEDS ORDERED: diphenhydrAMINE Capsule 25 MG CAP PO PRN (19:15)
[2024-10-26] MEDS ORDERED: Nursing to Pharmacy Communication SCH (01:00)
[2024-10-26] MEDS ORDERED: KETOROLAC 30 MG/ML VIAL IV PRN (02:26)
[2024-10-26] MEDS: CALCIUM CARBONATE 500 MG CHEWABLE TAB PO PRN (03:10)
[2024-10-26] MEDS: IBUPROFEN 600 MG TAB PO SCH (05:33)
[2024-10-26 06:04] LABS: Hematocrit (blood only) 28.0 % (37.0-47.0); Hemoglobin 9.5 g/dl (12.0-16.0); Immature Granulocytes # (auto) 0.08 K/uL (0.01-0.20); Immature Granulocytes % (auto) 0.6 %; Mean Corpuscular Hemoglobin 28.9 pg (25.0-34.0); Mean Corpuscular Volume 85.1 fL (80.0-100.0); Platelet Count 182 K/uL (130-400); RDW Standard Deviation 44.4 fL (36.4-46.3); Red Blood Count 3.29 M/uL (4.20-5.40); White Blood Count 14.01 K/ul (4.8-10.8)
--- NOTE | 2024-10-26 07:25 | Obstetrical Progress Note ---
Date of Service October 26, 2024 Assessment & Plan (1) Encounter for care and examination after [facility] 24 [facility]required straight cath x 2 s owill await spontaneous void, otherwise meeting pp milestones -pre-eclampsia - bps wnl, will continue to monitor -A-/rubella immune -f/u 6 weeks for appt, continue routine care, await void Subjective Ambulation: ambulating normally Voiding: requires PRN straight cath Passing Gas:: Yes Diet Tolerance:: regular diet Lochia:: Small Feeding Type:: breast feeding Pain well managed with medication Review of Systems Denies fevers, chills, n/v, NUNEZ, CP, SOB Physical Exam Constitutional WD/WN, vitals as above no acute distress Respiratory normal respiratory effort, lungs clear to auscultation Cardiovascular RRR, no murmur, no edema Gastrointestinal (Abdomen) Percussion/Palpation: abdomen soft; abdomen nontender fundus firm at umbilicus and NT, dressing c/d/i Musculoskeletal BLE symmetric, nonerythematous, nontender Results & Data Vital Signs (Past 12 Hours) Vital Signs Temp Pulse Pulse Resp BP BP Pulse Ox 10/26/24 00:00 97.7 F 88 16 118/75 98 10/25/24 22:28 98.1 F 84 16 116/72 97 10/25/24 22:21 97.5 F L 83 16 110/69 96 O2 Del Method 10/26/24 00:00 Room Air 10/25/24 22:28 10/25/24 22:21
[2024-10-26 07:39] VITALS: O2SAT 99
[2024-10-26 20:48] VITALS: RESP 18
[2024-10-26] MEDS: IBUPROFEN 600 MG TAB PO ONE (23:20)
[2024-10-26 23:36] VITALS: TEMP 97.9
[2024-10-27 05:50] LABS: Hematocrit (blood only) 29.5 % (37.0-47.0); Hemoglobin 9.8 g/dl (12.0-16.0)
--- NOTE | 2024-10-27 06:14 | Obstetrical Progress Note ---
Date of Service October 27, 2024 Assessment & Plan (1) care and examination: Plan: Patient had a complication of pre-eclampsia without any severe features. BP has been pretty stable yesterday and will be discharged today. Will be given RhoGam if not given already. (2) Delivery by section at 37-39 weeks of gestation due to labor: Plan Admission and Anticipated Discharge Date Admission Date: October 24, 2024 Supervising Physician Co-Signing Physician Notes Day 2 status post primary section for failure to progress. Patient doing well today. Vitals within normal limits today and denying preeclampsia symptoms. Stable for discharge Subjective 24yo post- day 3 s/p [] Had pre-eclampsia w/o severe features Ambulation: ambulating normally Voiding: no voiding problems Passing Gas:: Yes Diet Tolerance:: regular diet Feeding Type:: bottle feeding Current Pain Level: Stayed the same since yesterday Resting comfortably this AM in NAD. Denies fevers/chills, NUNEZ, CP/palp, SOB/cough/wheeze, N/V/D, LE pain/swelling, breast pain/Dschrg, UTI Sx. Review of Systems Review of Systems: as per subjective HPI Physical Exam Constitutional: WD/WN, vitals as above no acute distress Respiratory: normal respiratory effort, lungs clear to auscultation normal respiratory effort Auscultation: lungs clear to auscultation bilaterally Cardiovascular: RRR, no murmur, no edema Rate/Rhythm: regular rate and regular rhythm Gastrointestinal (Abdomen): Percussion/Palpation: abdomen soft Musculoskeletal: no calf pain B/L. Wound from is healing nicely, no signs of infection. Psychiatric: Speech: normal rate/rhythm/volume of speech Thought Process: linear/logical thought process Results & Data Vital Signs (Past 12 Hours) Vital Signs Temp Pulse Pulse Resp BP BP Pulse Ox 10/26/24 23:31 36.6 C 84 18 137/90 99 10/26/24 19:15 36.9 C 94 H 18 122/85 99 O2 Del Method 10/26/24 23:31 Room Air 10/26/24 19:15 Room Air
[2024-10-27 07:30] VITALS: BP 133/85
[2024-10-27] MEDS ORDERED: ACETAMINOPHEN 325 MG TAB PO PRN (08:26)
[2024-10-27] MEDS: IBUPROFEN 600 MG TAB PO PRN (08:27)
[2024-10-27 08:59] VITALS: PULSE 88
--- NOTE | 2024-10-28 11:56 | Discharge Summary ---
Date of Service October 28, 2024 Admission HPI Per Admitting Provider 24 yo at 39 3/7 wga presented for evaluation due to decreased fm. Denies regular ctx, LOF, VB. On arrival, started having normal fm but bps noted to be mildly elevated. Denies NUNEZ, vision change, CP, SOB, RUQ/epigastric pain. Labs wnl except UP:C 0.3. 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 G2 current denies hx stis denies hx abnl pap Admission Exam (Per Admitting) Constitutional WD/WN, vitals as above no acute distress Respiratory normal respiratory effort, lungs clear to auscultation Cardiovascular RRR, no murmur, no edema Genitourinary OB Exam Monitor Tracing: + external FHT monitor used, + external uterine monitor used (irreg) and + category I (150/mod/+accel/-decel) Discharge Data Consultations 10/24/24 23:35 Consult Anesthesiology Stat Procedures Performed Operation Date: 10/24/24 23:35 Actual Procedures p Section in LD - Brenda Walsh MD Hospital Course (1) Pre-eclampsia: 24 yo at 39 4/7 wga presented for evaluation due to decreased movement. Reactive NST was noted however mild range blood pressures noted and persisted. Pre-eclampsia labs were obtained and wnl except UP:C 0.3. Mild range blood pressures continued and she met criteria for pre-eclampsia without severe features and recommended for delivery. See operative report for details. Post-op course uncomplicated and she was discharged home on POD2 Coding Level of Care Code None Diagnoses Pre-eclampsia O14.90
== END 2024-10-27 10:30 | disposition home or self-care (01) | DRG 788 ==
LOC: OPB 19:01 → 4S1 19:04 → 4E2 10-25 13:45